=== PATIENT | female | born 1970 | race Caucasian/White ===

== ENCOUNTER 2017-12-09 22:15 | Inpatient (IN) | END 2017-12-11 16:15 | disposition home or self-care (01) | DRG 880 ==

== ENCOUNTER 2017-12-13 18:20 | Emergency (ER) | END 2017-12-13 22:59 | disposition left against medical advice (07) ==

== ENCOUNTER 2017-12-18 15:02 | Outpatient (CLI) | END 2017-12-18 16:10 | disposition home or self-care (01) ==

== ENCOUNTER 2018-01-01 15:57 | Outpatient (CLI) | END 2018-01-01 16:10 | disposition home or self-care (01) ==